=== PATIENT | female | born 1960 | race Hispanic/Latino ===

== ENCOUNTER 2019-04-23 10:38 | Inpatient (IN) | payer MEDICARE ==
[~2019-04-23] VITALS: Ht 157.5 cm; Wt 83.1 kg
[2019-04-23 10:57] LABS: BASOPHILS % (AUTO) 0.2 % (0.0-5.0); EOSINOPHILS % (AUTO) 1.4 % (0.0-8.0); HEMATOCRIT 22.5 % (36-48); LYMPHOCYTES % (AUTO) 9.2 % (21.0-51.0); MEAN CORPUSCULAR VOLUME 103.2 fL (79-99); MONOCYTES % (AUTO) 5.2 % (3.0-13.0); NEUTROPHILS % (AUTO) 83.5 % (40.0-77.0); NUCLEATED RED BLOOD CELLS 0.3 % (0.0-0.19); PLATELET COUNT (AUTO) 295 K/uL (130-400); RED BLOOD CELL COUNT(AUTO) 2.18 MIL/uL (4.00-5.50); RED CELL DISTRIBUTION WIDTH 13.6 % (11.0-15.5); WHITE BLOOD COUNT (AUTO) 12.9 K/uL (4.8-10.8)
[2019-04-23 11:28] LABS: BILIRUBIN,TOTAL 0.4 mg/dL (0.2-1.0); POTASSIUM 4.3 mmol/L (3.5-5.1); TOTAL PROTEIN, SERUM 7.3 g/dL (6.0-8.3)
[2019-04-23 11:33] LABS: CREATININE 9.1 mg/dL (0.5-1.5)
[2019-04-23 11:49] LABS: INR 0.96 (0.85-1.15); PARTIAL THROMBOPLASTIN TIME 24.7 SEC (26.3-35.5); PROTHROMBIN TIME 10.1 SEC (9.6-11.6)
[2019-04-23] MEDS ORDERED: HYDROMORPHONE 1 MG/1 ML AMP ONE (13:44)
[2019-04-23] MEDS ORDERED: GLUCAGON 1MG KIT 1 MG ML IM PRN (14:30)
[2019-04-23] MEDS ORDERED: DEXTROSE 50%-WATER 50 ML DISP.SYRIN IV PRN (14:30)
--- NOTE | 2019-04-23 14:50 | NUR ---
REPORT RECEIVED FROM ARRON GARCIA (ED). PATIENT ADMITTED UNDER DR. DONIS FOR FALL WITH LEFT FEMUR FX. DR. STARK AND DR. MONTELONGO CONSULTED. PATIENT PERFORMS PERITONEAL DIALYSIS AT . PATIENT WITH LEFT KNEE IMMOBILIZER IN PLACE. PATIENT GIVEN DILAUDID AND IS COMFORTABLE AT THIS TIME.
[2019-04-23 15:25] VITALS: BP 126/54
[2019-04-23] MEDS: INSULIN HUMULIN R 100 UNIT/ML 3ML SQ SCH ×2 (16:30→21:00)
--- NOTE | 2019-04-23 17:54 | NUR ---
PAGE PAGED DR. MONTELONGO REGARDING PERITONEAL DIALYSIS. PER DR. MONTELONGO, PATIENT MAY START PERITONEAL DIALYSIS TOMORROW WHEN SUPPLIES IS AVAILABLE AT BEDSIDE. FAMILY TO BRING SUPPLIES. NEPHROLOGY STATED PATIENT IS OKAY FOR SURGICAL CLEARANCE.
[2019-04-23] MEDS ORDERED: FOLI0.8T22 PO (18:42)
[2019-04-23] MEDS ORDERED: PRED5DRO25 OP (18:42)
[2019-04-23] MEDS ORDERED: GABA-531 PO (18:42)
[2019-04-23] MEDS ORDERED: ATRO2DRO OP (18:42)
[2019-04-23] MEDS ORDERED: CALC0.253 PO (18:42)
[2019-04-23] MEDS ORDERED: ATOR40TA69 PO (18:42)
[2019-04-23] MEDS ORDERED: BRIM5DRO OP (18:42)
[2019-04-23] MEDS ORDERED: FLUT1DIS4 IH (18:42)
[2019-04-23] MEDS ORDERED: LOSA50TA64 PO (18:42)
[2019-04-23] MEDS ORDERED: MONT10TA26 PO (18:42)
[2019-04-23] MEDS ORDERED: CARV6.25 PO (18:42)
[2019-04-23] MEDS ORDERED: AMLO5TAB9 PO (18:42)
[2019-04-23] MEDS ORDERED: CLIN300C9 PO (18:42)
--- NOTE | 2019-04-23 19:45 | NUR ---
PATIENT UNABLE TO ANSWER QUESTIONS REGARDING FAMILY HISTORY OR SIGN CONSENT DUE TO PATIENT VERY SLEEPY FROM PAIN MEDICATION. REPORT GIVEN TO ARRON SALAZAR.
[2019-04-23 20:00] VITALS: BP 142/69
[2019-04-23] MEDS: FAMOTIDINE/PF 20 MG/2 ML VIAL IV SCH (20:29)
[2019-04-24] VITALS (7 sets, daily range): BP systolic 125–142; BP diastolic 51–76
[2019-04-24 05:30] LABS: BASOPHILS % (AUTO) 0.3 % (0.0-5.0); EOSINOPHILS % (AUTO) 1.1 % (0.0-8.0); LYMPHOCYTES % (AUTO) 12.9 % (21.0-51.0); MEAN CORPUSCULAR HEMOGLOBIN 33.3 pg (27.0-33.0); MEAN CORPUSCULAR HGB CONC 32.4 g/dL (32.0-36.0); MONOCYTES % (AUTO) 6.6 % (3.0-13.0); NEUTROPHILS % (AUTO) 78.7 % (40.0-77.0); NUCLEATED RED BLOOD CELLS 0.2 % (0.0-0.19); PLATELET COUNT (AUTO) 260 K/uL (130-400); RED BLOOD CELL COUNT(AUTO) 1.98 MIL/uL (4.00-5.50); WHITE BLOOD COUNT (AUTO) 11.6 K/uL (4.8-10.8)
[2019-04-24 05:38] LABS: HEMATOCRIT 20.4 % (36-48)
[2019-04-24 05:39] LABS: PARTIAL THROMBOPLASTIN TIME 27.3 SEC (26.3-35.5); PROTHROMBIN TIME 10.5 SEC (9.6-11.6)
[2019-04-24 06:30] LABS: CREATININE 10.4 mg/dL (0.5-1.5); POTASSIUM 6.1 mmol/L (3.5-5.1)
[2019-04-24] MEDS: INSULIN HUMULIN R 100 UNIT/ML 3ML SQ SCH ×4 (07:30→21:00)
[2019-04-24] MEDS: FAMOTIDINE/PF 20 MG/2 ML VIAL IV SCH ×2 (09:00→20:23)
[2019-04-24] MEDS: AMLODIPINE BESYLATE 5 MG TAB PO SCH ×2 (10:02→20:22)
[2019-04-24] MEDS: ATROPINE SULFATE 5 ML DROPS OP SCH ×2 (10:03→20:23)
[2019-04-24] MEDS: CALCITRIOL 0.25 MCG CAPSULE PO SCH (10:04)
[2019-04-24] MEDS: CARVEDILOL 6.25 MG TABLET PO SCH ×2 (10:04→20:22)
[2019-04-24] MEDS: LOSARTAN 50 MG TABLET PO SCH ×2 (10:05→20:22)
[2019-04-24] MEDS: FLUTICASONE/SALMETEROL 100MCG-50MCG/DISKUS IH SCH (10:06)
[2019-04-24] MEDS: ***HM***(Brimonidine Tartrate/Timolol (Combigan Eye Drops) 5 ML) OP SCH ×2 (10:07→21:00)
[2019-04-24] MEDS: FOLIC ACID/VITAMIN B COMP W-C 1 MG CAP/TAB PO SCH (10:07)
[2019-04-24] MEDS: PREDNISOLONE ACETATE 1% 5ML DROPS.SUSP OP SCH ×2 (10:08→20:22)
[2019-04-24] MEDS: HYDROMORPHONE 1 MG/1 ML AMP IVP PRN (10:42)
[2019-04-24] MEDS: ALBUTEROL SULFATE 0.083% 2.5 MG/3 ML INH IH SCH ×3 (10:46→23:43)
[2019-04-24] MEDS ORDERED: SODIUM CHLORIDE 0.9% 250 ML IV ONE (11:30)
[2019-04-24] MEDS: GABAPENTIN 300 MG CAPSULE PO SCH ×2 (14:00→20:22)
--- NOTE | 2019-04-24 14:15 | NUR ---
HD hemodialysis completed. tolerated well, voices on concerns, pain or shortness of breath. 1.3 liters removed over 3 hours. 117/64 bp with heart rate of 97.
--- NOTE | 2019-04-24 15:15 | NUR ---
INITIAL SW met with patient's sister. Patient lives alone but for 6 months during the winter her sister from [place], Ludivina Moses comes to stay with her. Other Emergency contacts are sisters: Starla Moran, and Dalia Adams . No home health but does have [facility] with [facility] X 31.5 hours a week. Patient does Peritoneal Dialysis at home. DME: BPM, glucometer (uses insulin), wheelchair, walker with seat, standard walker, shower chair, BSC. Patient needs help at times to complete ADL's as per sister and does not drive. PCP is JUNIOR Damian. Pharmacy is [facility] located in [place]. DCP is home. Addendum: 04/24/19 at 1521 by EMMIE SONG SS Amended: Links added.
--- NOTE | 2019-04-24 17:10 | NUR ---
Nutrition Intervention: Nutrition consult due to admit trigger. Pt. on Renal Dialysis diet, 1200ml F.R. with <50% p.o. intake, per pt's sister Ludivina. As per pt's sister, pt. has been hallucinating. Spoke with pt' sister regarding nutritional supplementation and agreed to let pt. try. Labs reviewed(Alb 3.0, BUN 72, Creat 10.4, GFR 4, BG 153, K 6.1). SR-14, Abd. PD Cath. LB: 04/23/2019. Pt's sister reports pt. has been on PD for ~3 years and are very familiar with renal diet. Informed pt's sister that pt's Potassium lever was elevated. Pt's sister Ludivina educated on High Potassium foods for pt. to avoid and provided with education material. Pt's sister Ludivina verbalized understanding. Recommendations: 1) Rec. 75gm CCD Renal Dialysis diet. 2) Rec. Nepro QD with Lunch meal. 3) High Potassium foods to avoid diet education given to pt's sister-Ludivina. 4) Continue to monitor pt's nutritional status. 5) Consult RD as nutrition concerns arise. Addendum: 04/24/19 at [address] Amended: Links added.
[2019-04-24] MEDS: BUDESONIDE 0.5 MG/2 ML INH IH SCH (18:38)
[2019-04-24] MEDS: MONTELUKAST SODIUM 10 MG TAB PO SCH (20:21)
[2019-04-24] MEDS: ATORVASTATIN CALCIUM 40 MG TABLET PO SCH (20:22)
[2019-04-24] MEDS ORDERED: ACETAMINOPHEN 325 MG TAB PO PRN (23:30)
--- NOTE | 2019-04-24 23:34 | NUR ---
FEVER PATIENT WITH FEVER OF 101.5 F ORALLY. ELIEL RUBIO REGASIFICATION PLANT OPERATOR NOTIFIED OF PATIENT CONDITION AND GAVE ORDERS FOR CXR, LABS, AND MEDS. ALL ORDERS CARRIED OUT
[2019-04-24] MEDS ORDERED: ACETAMINOPHEN 325 MG TAB ONE (23:38)
[2019-04-25 03:55] VITALS: BP 118/52
[2019-04-25 04:40] LABS: BASOPHILS % (AUTO) 0.3 % (0.0-5.0); EOSINOPHILS % (AUTO) 0.7 % (0.0-8.0); HEMATOCRIT 26.3 % (36-48); LYMPHOCYTES % (AUTO) 9.1 % (21.0-51.0); MEAN CORPUSCULAR HEMOGLOBIN 31.8 pg (27.0-33.0); MEAN CORPUSCULAR HGB CONC 33.5 g/dL (32.0-36.0); MEAN CORPUSCULAR VOLUME 94.9 fL (79-99); MONOCYTES % (AUTO) 7.6 % (3.0-13.0); NEUTROPHILS % (AUTO) 81.7 % (40.0-77.0); PLATELET COUNT (AUTO) 207 K/uL (130-400); RED BLOOD CELL COUNT(AUTO) 2.77 MIL/uL (4.00-5.50); RED CELL DISTRIBUTION WIDTH 18.7 % (11.0-15.5); WHITE BLOOD COUNT (AUTO) 10.1 K/uL (4.8-10.8)
[2019-04-25 04:58] LABS: ALBUMIN 2.3 g/dL (3.5-5.0); BILIRUBIN,TOTAL 0.5 mg/dL (0.2-1.0); CREATININE 7.1 mg/dL (0.5-1.5); POTASSIUM 4.1 mmol/L (3.5-5.1); TOTAL PROTEIN, SERUM 6.3 g/dL (6.0-8.3)
[2019-04-25] MEDS: ALBUTEROL SULFATE 0.083% 2.5 MG/3 ML INH IH SCH ×4 (05:11→23:38)
[2019-04-25] MEDS: BUDESONIDE 0.5 MG/2 ML INH IH SCH ×2 (05:12→19:10)
[2019-04-25] MEDS: INSULIN HUMULIN R 100 UNIT/ML 3ML SQ SCH ×4 (05:53→20:39)
[2019-04-25] MEDS: ACETAMINOPHEN-CODEINE 300/30MG TAB PO PRN (06:31)
[2019-04-25 07:52] VITALS: BP 115/57
[2019-04-25] MEDS: CALCITRIOL 0.25 MCG CAPSULE PO SCH (09:00)
[2019-04-25] MEDS: FLUTICASONE/SALMETEROL 100MCG-50MCG/DISKUS IH SCH (09:00)
[2019-04-25] MEDS: ***HM***(Brimonidine Tartrate/Timolol (Combigan Eye Drops) 5 ML) OP SCH ×2 (09:00→20:49)
[2019-04-25] MEDS: AMLODIPINE BESYLATE 5 MG TAB PO SCH ×2 (09:00→20:43)
[2019-04-25] MEDS: CARVEDILOL 6.25 MG TABLET PO SCH ×2 (09:00→20:44)
[2019-04-25] MEDS: FOLIC ACID/VITAMIN B COMP W-C 1 MG CAP/TAB PO SCH (09:12)
[2019-04-25] MEDS: FAMOTIDINE/PF 20 MG/2 ML VIAL IV SCH ×2 (09:16→20:43)
[2019-04-25] MEDS: LOSARTAN 50 MG TABLET PO SCH ×2 (09:16→20:43)
[2019-04-25] MEDS: ATROPINE SULFATE 5 ML DROPS OP SCH ×2 (09:16→20:49)
[2019-04-25] MEDS: GABAPENTIN 300 MG CAPSULE PO SCH ×3 (09:16→20:44)
[2019-04-25] MEDS: PREDNISOLONE ACETATE 1% 5ML DROPS.SUSP OP SCH ×2 (09:17→20:49)
[2019-04-25] MEDS: HYDROMORPHONE 1 MG/1 ML AMP IVP PRN (09:30)
[2019-04-25 11:23] VITALS: BP 130/59
[2019-04-25] MEDS ORDERED: COMPOUND IV MISC 1 EACH IVSOLN MISC PRN (11:45)
[2019-04-25] MEDS: VALPROIC ACID IV SCH ×2 (12:33→23:24)
[2019-04-25] MEDS: CHLORIDE IV SCH ×2 (12:33→23:24)
[2019-04-25] MEDS: SODIUM IV SCH ×2 (12:33→23:24)
[2019-04-25 16:25] VITALS: BP 127/58
--- NOTE | 2019-04-25 16:46 | NUR ---
DCP SW met with patient to discuss discharge planning. Patient agreed to go to SNF but states she does not want to stay the full 20 days. Patient signed [facility]/Choice for [facility]. [facility]/Choice form placed in chart. Radha MADISON, made aware. Patient's nurse also made aware.
[2019-04-25 17:28] LABS: HEMOGLOBIN A1C 6.8 % (4.0-6.0)
[2019-04-25 19:27] VITALS: BP 119/58
[2019-04-25] MEDS: ATORVASTATIN CALCIUM 40 MG TABLET PO SCH (20:43)
[2019-04-25] MEDS: MONTELUKAST SODIUM 10 MG TAB PO SCH (20:43)
[2019-04-25] MEDS: ACETAMINOPHEN 325 MG TAB PO PRN (20:44)
[2019-04-25 23:12] VITALS: BP 108/50
[2019-04-26] VITALS (20 sets, daily range): BP systolic 79–135; BP diastolic 30–67
[2019-04-26] MEDS: ACETAMINOPHEN-CODEINE 300/30MG TAB PO PRN (00:30)
[2019-04-26 05:15] LABS: BASOPHILS % (AUTO) 0.2 % (0.0-5.0); EOSINOPHILS % (AUTO) 1.3 % (0.0-8.0); HEMATOCRIT 25.4 % (36-48); LYMPHOCYTES % (AUTO) 8.9 % (21.0-51.0); MEAN CORPUSCULAR HEMOGLOBIN 31.4 pg (27.0-33.0); MEAN CORPUSCULAR HGB CONC 32.7 g/dL (32.0-36.0); MEAN CORPUSCULAR VOLUME 96.2 fL (79-99); MONOCYTES % (AUTO) 7.6 % (3.0-13.0); NEUTROPHILS % (AUTO) 81.7 % (40.0-77.0); PLATELET COUNT (AUTO) 206 K/uL (130-400); RED BLOOD CELL COUNT(AUTO) 2.64 MIL/uL (4.00-5.50); RED CELL DISTRIBUTION WIDTH 17.7 % (11.0-15.5); WHITE BLOOD COUNT (AUTO) 12.4 K/uL (4.8-10.8)
[2019-04-26 05:26] LABS: ALBUMIN 2.2 g/dL (3.5-5.0); BILIRUBIN,TOTAL 0.5 mg/dL (0.2-1.0); TOTAL PROTEIN, SERUM 6.4 g/dL (6.0-8.3)
[2019-04-26 05:28] LABS: CREATININE 9.1 mg/dL (0.5-1.5)
[2019-04-26] MEDS: ALBUTEROL SULFATE 0.083% 2.5 MG/3 ML INH IH SCH ×4 (05:38→23:13)
[2019-04-26] MEDS: BUDESONIDE 0.5 MG/2 ML INH IH SCH ×2 (05:38→18:41)
[2019-04-26] MEDS: INSULIN HUMULIN R 100 UNIT/ML 3ML SQ SCH ×4 (05:49→21:45)
--- NOTE | 2019-04-26 08:06 | NUR ---
I HAVE SPOKEN TO DIALYSIS NURSE IN REGARDS TO PT NEEDING DIALYSIS THIS AM PRIOR TO POSSIBLE SURGERY AT NOON.
[2019-04-26] MEDS ORDERED: KETOROLAC TROMETHAMINE 30MG/ML IV PRN (08:15)
[2019-04-26 08:35] LABS: HEPATITIS A ANTIBODY IGM SEE SEPARATE REPORT (Negative); HEPATITIS B CORE IGM SEE SEPARATE RESULT (Negative); HEPATITIS Bs ANTIGEN SCREEN P SSR (Negative)
[2019-04-26] MEDS: CARVEDILOL 6.25 MG TABLET PO SCH ×2 (09:00→21:00)
[2019-04-26] MEDS: FOLIC ACID/VITAMIN B COMP W-C 1 MG CAP/TAB PO SCH (09:00)
[2019-04-26] MEDS: CALCITRIOL 0.25 MCG CAPSULE PO SCH (09:00)
[2019-04-26] MEDS: FLUTICASONE/SALMETEROL 100MCG-50MCG/DISKUS IH SCH (09:00)
[2019-04-26] MEDS: PREDNISOLONE ACETATE 1% 5ML DROPS.SUSP OP SCH ×2 (09:00→21:14)
[2019-04-26] MEDS: ATROPINE SULFATE 5 ML DROPS OP SCH ×2 (09:00→21:14)
[2019-04-26] MEDS: ***HM***(Brimonidine Tartrate/Timolol (Combigan Eye Drops) 5 ML) OP SCH ×2 (09:00→21:00)
[2019-04-26] MEDS: GABAPENTIN 300 MG CAPSULE PO SCH (09:00)
--- NOTE | 2019-04-26 09:53 | NUR ---
I HAVE CALLED DR STARK AND INFORMED HIM PT IS CLEAR FOR SURGERY TODAY AND IS RECEIVING HER DIALYSIS NOW; HE STATED TO CALL HIM ONCE THE DIALYSIS IS COMPLETE.
[2019-04-26] MEDS: LOSARTAN 50 MG TABLET PO SCH ×2 (11:55→21:00)
[2019-04-26] MEDS: SODIUM IV SCH (11:55)
[2019-04-26] MEDS: AMLODIPINE BESYLATE 5 MG TAB PO SCH ×2 (11:55→21:00)
[2019-04-26] MEDS: VALPROIC ACID IV SCH (11:55)
[2019-04-26] MEDS: CHLORIDE IV SCH (11:55)
[2019-04-26] MEDS: FAMOTIDINE/PF 20 MG/2 ML VIAL IV SCH ×2 (11:56→20:51)
[2019-04-26] MEDS ORDERED: LIDOCAINE PF 2% 5ML ABBOJECT ONE (12:03)
[2019-04-26] MEDS ORDERED: PHENYLEPHRINE HCL 10 MG/ML 1ML VIAL IV ONE (12:03)
[2019-04-26] MEDS ORDERED: SUCCINYLCHOLINE 200MG/10ML SYR ONE (12:03)
[2019-04-26] MEDS ORDERED: ROCURONIUM 10MG/1ML SYR 10 MG/ML ML ONE (12:04)
[2019-04-26] MEDS ORDERED: PROPOFOL 10 MG/ML 20ML VIAL IV ONE (12:04)
[2019-04-26] MEDS ORDERED: FENTANYL CITRATE PF 50 MCG/1 ML 2ML VIAL ONE ×2 (12:04→16:14)
[2019-04-26] MEDS ORDERED: ROPIVACAINE 0.5% 5MG/ML 30ML IJ ONE (12:13)
[2019-04-26] MEDS ORDERED: CEFAZOLIN SODIUM 1 GM VIAL ONE (12:49)
[2019-04-26] MEDS: GABAPENTIN 100 MG CAPSULE PO SCH ×2 (14:00→20:58)
[2019-04-26] MEDS ORDERED: GLYCOPYRROLATE 1 MG/5 ML SYRINGE ONE (14:43)
[2019-04-26] MEDS ORDERED: NEOSTIGMINE 5MG/5ML SYR IV ONE (14:43)
[2019-04-26] MEDS ORDERED: ONDANSETRON HCL 4 MG/2 ML VIAL ONE (16:34)
--- NOTE | 2019-04-26 16:50 | NUR ---
received pt post op, she denies pain unless you are moving her , knee immobilizer in place
[2019-04-26] MEDS: EPOETIN ALFA 10,000 UNIT/ML VIAL SQ SCH (17:11)
[2019-04-26] MEDS: CEFAZOLIN SODIUM 1 GM VIAL IVP SCH (20:51)
[2019-04-26] MEDS ORDERED: TRIAM15CRM OD (20:57)
[2019-04-26] MEDS ORDERED: TOBR5DRO44 OD (20:57)
[2019-04-26] MEDS: ATORVASTATIN CALCIUM 40 MG TABLET PO SCH (20:58)
[2019-04-26] MEDS: MONTELUKAST SODIUM 10 MG TAB PO SCH (20:58)
[2019-04-26] MEDS: HEPARIN SODIUM 5000UNIT/ML 1ML VIAL SQ SCH (21:21)
[2019-04-26] MEDS ORDERED: LACTULOSE 20 GM/30 ML UDCUP PO PRN (21:45)
--- NOTE | 2019-04-26 22:00 | NUR ---
CONSTIPATION PATIENT COMPLAINS OF CONSTIPATION AND THREE DAYS WITH NO BOWEL MOVEMENT. AJ DEMAND PLANNING ANALYST NOTIFIED OF PATIENT STATUS AND ORDERS FOR LACTULOSE AND COLACE WERE GIVEN AND CARRIED OUT.
[2019-04-27 00:13] VITALS: BP 111/53
[2019-04-27] MEDS ORDERED: KETOROLAC TROMETHAMINE 30MG/ML IV PRN (00:30)
[2019-04-27 04:00] VITALS: BP 111/54
[2019-04-27 04:01] LABS: BASOPHILS % (AUTO) 0.2 % (0.0-5.0); EOSINOPHILS % (AUTO) 0.6 % (0.0-8.0); HEMATOCRIT 25.3 % (36-48); LYMPHOCYTES % (AUTO) 3.7 % (21.0-51.0); MEAN CORPUSCULAR HEMOGLOBIN 31.2 pg (27.0-33.0); MEAN CORPUSCULAR VOLUME 97.3 fL (79-99); MONOCYTES % (AUTO) 7.6 % (3.0-13.0); NEUTROPHILS % (AUTO) 87.5 % (40.0-77.0); PLATELET COUNT (AUTO) 208 K/uL (130-400); RED CELL DISTRIBUTION WIDTH 17.3 % (11.0-15.5); WHITE BLOOD COUNT (AUTO) 9.9 K/uL (4.8-10.8)
[2019-04-27 04:20] LABS: ALBUMIN 2.2 g/dL (3.5-5.0); BILIRUBIN,TOTAL 0.4 mg/dL (0.2-1.0); CREATININE 5.7 mg/dL (0.5-1.5); POTASSIUM 4.4 mmol/L (3.5-5.1); TOTAL PROTEIN, SERUM 6.6 g/dL (6.0-8.3)
[2019-04-27] MEDS: CEFAZOLIN SODIUM 1 GM VIAL IVP SCH ×2 (05:23→13:47)
[2019-04-27] MEDS: INSULIN HUMULIN R 100 UNIT/ML 3ML SQ SCH ×4 (06:06→21:00)
[2019-04-27] MEDS: ALBUTEROL SULFATE 0.083% 2.5 MG/3 ML INH IH SCH ×4 (06:10→23:53)
[2019-04-27] MEDS: BUDESONIDE 0.5 MG/2 ML INH IH SCH ×2 (06:10→18:17)
[2019-04-27 08:20] VITALS: BP 104/51
[2019-04-27] MEDS: ***HM***(Brimonidine Tartrate/Timolol (Combigan Eye Drops) 5 ML) OP SCH ×2 (09:00→21:00)
[2019-04-27] MEDS: CARVEDILOL 6.25 MG TABLET PO SCH ×2 (09:00→23:05)
[2019-04-27] MEDS: AMLODIPINE BESYLATE 5 MG TAB PO SCH ×2 (09:00→23:03)
[2019-04-27] MEDS: CALCITRIOL 0.25 MCG CAPSULE PO SCH (09:00)
[2019-04-27] MEDS: ATROPINE SULFATE 5 ML DROPS OP SCH ×2 (09:00→23:06)
[2019-04-27] MEDS: FLUTICASONE/SALMETEROL 100MCG-50MCG/DISKUS IH SCH (09:00)
[2019-04-27] MEDS: PREDNISOLONE ACETATE 1% 5ML DROPS.SUSP OP SCH ×2 (09:00→23:06)
[2019-04-27] MEDS: LOSARTAN 50 MG TABLET PO SCH ×2 (09:00→23:04)
[2019-04-27] MEDS: FOLIC ACID/VITAMIN B COMP W-C 1 MG CAP/TAB PO SCH (10:00)
[2019-04-27] MEDS: DOCUSATE SODIUM 100 MG CAP PO SCH ×2 (10:00→23:05)
[2019-04-27] MEDS: GABAPENTIN 100 MG CAPSULE PO SCH ×3 (10:02→23:03)
[2019-04-27] MEDS: FAMOTIDINE/PF 20 MG/2 ML VIAL IV SCH ×2 (10:02→23:06)
[2019-04-27] MEDS: HEPARIN SODIUM 5000UNIT/ML 1ML VIAL SQ SCH ×2 (10:09→23:08)
[2019-04-27] MEDS: ACETAMINOPHEN 325 MG TAB PO PRN (10:12)
[2019-04-27] MEDS: CHLORIDE IV SCH ×3 (11:45→23:32)
[2019-04-27] MEDS ORDERED: PHARMACY COMMUNICATION MISC SCH ×2 (11:45)
[2019-04-27] MEDS: VALPROIC ACID IV SCH ×3 (11:45→23:32)
[2019-04-27] MEDS: SODIUM IV SCH ×3 (11:45→23:32)
[2019-04-27 11:55] VITALS: BP 94/57
--- NOTE | 2019-04-27 16:22 | NUR ---
Nutrition Follow-up: Pt. S/P ORIF Left distal femur fracture(04/26/2019). Pt. on Renal dialysis diet, 1200ml fluid rest. Pt. reports eating ~50% of her meals. Spoke with pt. regarding nut. supplementation and pt. agreed to try. Labs reviewed(Alb 2.2, BG 225, BUN 34, Creat 5.7, GFR 8). SR-17, thigh incision. Pt. with 1+ edema to LLE. LBM: 04/23/2019. Pt. has lactulose prescribed for lower GI distress. Recommendations: 1) Rec. 60gm CCD Renal Dialysis diet, 1200ml Fluid Rest. 2) Rec. Nepro QD with Lunch meal. 3) Continue to monitor pt's nutritional status. 4) Consult RD as nutrition concerns arise. Addendum: 04/27/19 at [address] Amended: Links added.
[2019-04-27 16:47] VITALS: BP 137/63
--- NOTE | 2019-04-27 17:56 | NUR ---
CM Note: [facility] acceptance CM spoke to Elba dickey/Gareth, pt has acceptance. EMS arranged and faxed for tomorrow, pending Dr Lopez clearance. Primary nurse to call [facility] once pt ready to DC.. Primary nurse aware. CM to cont to follow up.
[2019-04-27 20:30] VITALS: BP 133/62
[2019-04-27] MEDS: ATORVASTATIN CALCIUM 40 MG TABLET PO SCH (23:04)
[2019-04-27] MEDS: MONTELUKAST SODIUM 10 MG TAB PO SCH (23:04)
[2019-04-28 00:25] VITALS: BP 135/63
[2019-04-28] MEDS ORDERED: PHARMACY COMMUNICATION MISC SCH ×2 (01:00→01:45)
[2019-04-28 04:00] VITALS: BP 112/61
[2019-04-28] MEDS: INSULIN HUMULIN R 100 UNIT/ML 3ML SQ SCH ×2 (06:17→11:49)
[2019-04-28] MEDS: BUDESONIDE 0.5 MG/2 ML INH IH SCH (06:18)
[2019-04-28] MEDS: ALBUTEROL SULFATE 0.083% 2.5 MG/3 ML INH IH SCH ×2 (06:18→11:49)
[2019-04-28 08:00] VITALS: BP 112/60
[2019-04-28] MEDS: GABAPENTIN 100 MG CAPSULE PO SCH (08:55)
[2019-04-28] MEDS: FOLIC ACID/VITAMIN B COMP W-C 1 MG CAP/TAB PO SCH (08:55)
[2019-04-28] MEDS: AMLODIPINE BESYLATE 5 MG TAB PO SCH (08:55)
[2019-04-28] MEDS: DOCUSATE SODIUM 100 MG CAP PO SCH (08:55)
[2019-04-28] MEDS: LOSARTAN 50 MG TABLET PO SCH (08:55)
[2019-04-28] MEDS: CARVEDILOL 6.25 MG TABLET PO SCH (08:56)
[2019-04-28] MEDS: FAMOTIDINE/PF 20 MG/2 ML VIAL IV SCH (08:57)
[2019-04-28] MEDS: ATROPINE SULFATE 5 ML DROPS OP SCH (08:57)
[2019-04-28] MEDS: PREDNISOLONE ACETATE 1% 5ML DROPS.SUSP OP SCH (08:58)
[2019-04-28] MEDS: ***HM***(Brimonidine Tartrate/Timolol (Combigan Eye Drops) 5 ML) OP SCH (08:58)
[2019-04-28] MEDS: EPOETIN ALFA 10,000 UNIT/ML VIAL SQ SCH (08:59)
[2019-04-28] MEDS: CALCITRIOL 0.25 MCG CAPSULE PO SCH (09:00)
[2019-04-28] MEDS: FLUTICASONE/SALMETEROL 100MCG-50MCG/DISKUS IH SCH (09:01)
[2019-04-28] MEDS: HEPARIN SODIUM 5000UNIT/ML 1ML VIAL SQ SCH (09:14)
[2019-04-28 11:00] VITALS: BP 118/51
--- NOTE | 2019-04-28 11:45 | NUR ---
INSTRUCTIONS DISCHARGE INSTRUCTIONS GIVEN TO PATIENT AND FAMILY USING TEACH BACK. IV REMOVED WITH TIP INTACT. DIRECT PRESSURE APPLIED UNTIL BLEEDING CONTROLLED THEN SITE COVERED WITH GAUZE AND SECURED WITH A BAND-AID. NEW PRESCRIPTIONS PLACED IN PACKET GOING TO SNF. ALL PRINTED INFORMATION AND MD INSTRUCTIONS PLACED IN DISCHARGE PACKET. F/U APPOINTMENT MADE. PENDING EMS FOR TRANSFER. NO QUESTIONS OR CONCERNS VOICED.
[2019-04-29] MEDS ORDERED: VALPROIC ACID IV SCH (01:00)
[2019-04-29] MEDS ORDERED: CHLORIDE IV SCH (01:00)
[2019-04-29] MEDS ORDERED: SODIUM IV SCH (01:00)
== END 2019-04-28 17:59 | DRG 480 ==
LOC: EDH 10:38 → EDHIP 13:30 → 4AH 15:25
PROVIDERS: ADMIT Hospitalist; ATTEND Hospitalist
PROC: 30233N1 Transfusion of Nonautologous Red Blood Cells into Peripheral Vein, Percutaneous Approach (ICD-10-PCS; 2019-04-24)
PROC: 5A1D70Z Performance of Urinary Filtration, Intermittent, Less than 6 Hours Per Day (ICD-10-PCS; 2019-04-24)
PROC: 5A1D70Z Performance of Urinary Filtration, Intermittent, Less than 6 Hours Per Day (ICD-10-PCS; 2019-04-26)
PROC: 0QSC04Z Reposition Left Lower Femur with Internal Fixation Device, Open Approach (ICD-10-PCS; principal; 2019-04-27)
PROC: 5A1D70Z Performance of Urinary Filtration, Intermittent, Less than 6 Hours Per Day (ICD-10-PCS; 2019-04-28)
DX: S72.412A Displaced unspecified condyle fracture of lower end of left femur, initial encounter for closed fracture (principal); N18.6 End stage renal disease; G93.41 Metabolic encephalopathy; E87.1 Hypo-osmolality and hyponatremia; I12.0 Hypertensive chronic kidney disease with stage 5 chronic kidney disease or end stage renal disease; D72.829 Elevated white blood cell count, unspecified; E11.22 Type 2 diabetes mellitus with diabetic chronic kidney disease; H54.62 Unqualified visual loss, left eye, normal vision right eye; Z96.642 Presence of left artificial hip joint; E78.5 Hyperlipidemia, unspecified; E03.9 Hypothyroidism, unspecified; E87.5 Hyperkalemia; E11.51 Type 2 diabetes mellitus with diabetic peripheral angiopathy without gangrene; D63.1 Anemia in chronic kidney disease; W01.0XXA Fall on same level from slipping, tripping and stumbling without subsequent striking against object, initial encounter; Z99.2 Dependence on renal dialysis; G25.3 Myoclonus; Y93.89 Activity, other specified; Y92.89 Other specified places as the place of occurrence of the external cause; Y99.8 Other external cause status; Z90.49 Acquired absence of other specified parts of digestive tract; Z98.891 History of uterine scar from previous surgery; Z82.3 Family history of stroke; Z82.49 Family history of ischemic heart disease and other diseases of the circulatory system; Z83.3 Family history of diabetes mellitus; Z98.51 Tubal ligation status; Z89.432 Acquired absence of left foot
CPT/HCPCS: 36415; 36430; 70450; 71045; 73502; 73552; 73562; 80048; 80053; 80074; 82140; 82550; 82948; 83036; 83605; 84484; 85025; 85610; 85730; 86850; 86900; 86901; 86922; 87040; 90935; 93005; 94640; 94664; 97039; G0378; J0330; J0690; J0885; J1170; J1644; J1815; J1885; J2001; J2370; J2405; J2704; J2710; J2795; J3010; J3490; J7030; J7510; P9016

== ENCOUNTER → 2019-09-01 | Outpatient (CLI) | payer MEDICARE ==
[~2019-09-01] MED LIST: AMLO5TAB9 PO; ATOR40TA69 PO; ATRO2DRO OP; BRIM5DRO OP; CALC0.253 PO; CARV6.25 PO; CLIN300C9 PO; FLUT1DIS4 IH; FOLI0.8T22 PO; GABA-531 PO; LOSA50TA64 PO; MONT10TA26 PO; PRED5DRO25 OP; TOBR5DRO44 OD; TRIAM15CRM OD
== END ==
LOC: DAH 10:00 → EDSTATUS 09-07 08:10
PROVIDERS: ATTEND Internal Medicine Gastroenterology
DX: R13.10 Dysphagia, unspecified (principal); R12 Heartburn; U07.1 COVID-19; Z53.8 Procedure and treatment not carried out for other reasons
CPT/HCPCS: 36415; U0003